=== PATIENT | male | born 1960 | race Caucasian/White ===

== ENCOUNTER → 2018-05-02 | Outpatient (CLI) | payer OTHER | LOC: M.RAD 10:06 | DX: M25.531 Pain in right wrist (principal); M25.532 Pain in left wrist ==

== ENCOUNTER → 2018-07-02 | Outpatient (CLI) | payer OTHER | LOC: M.RAD 10:02 | DX: M25.551 Pain in right hip (principal); R10.2 Pelvic and perineal pain; W19.XXXA Unspecified fall, initial encounter ==

== ENCOUNTER → 2020-06-09 | Outpatient (CLI) | payer BC | LOC: M.ULTRA 08:39 | PROVIDERS: ATTEND Internal Medicine | DX: K76.0 Fatty (change of) liver, not elsewhere classified (principal); K76.89 Other specified diseases of liver; R74.8 Abnormal levels of other serum enzymes ==